=== PATIENT | male | born 1965 | race Caucasian/White ===

== ENCOUNTER 2019-08-26 08:00 | Outpatient (CLI) | payer MEDICAID ==
--- NOTE | 2019-08-26 13:51 | XRAY Report ---
PROCEDURE: Chest 2 View X-Ray INDICATIONS: SHORTNESS OF BREATH TECHNIQUE: 2 view(s) of the chest. COMPARISON: None. FINDINGS: Surgical changes and devices: None. Lungs and pleura: No pleural effusions or pneumothorax. Lungs are clear. Mediastinum: Mediastinal contours are normal. Heart size is normal. Bones and chest wall: No suspicious bony abnormalities. Soft tissues appear unremarkable. IMPRESSION: No acute pulmonary process. Reviewed by: Kritsy Beltre MD on 08/26/2019 1:50 PM PDT Approved by: Kristy Beltre MD on 08/26/2019 1:50 PM PDT Station ID: [id number]
== END 2019-08-26 23:59 | disposition home or self-care (01) ==
LOC: DI.S 08:00
PROVIDERS: ATTEND Physician Assistant Medical
DX: R06.02 Shortness of breath (principal); R07.89 Other chest pain
CPT/HCPCS: 71046

== ENCOUNTER 2019-08-26 08:00 | Outpatient (CLI) | payer MEDICAID ==
[2019-08-26 15:08] LABS: BASOPHILS # (AUTO) 0.1 10^3/uL (0.0-0.1); BASOPHILS % (AUTO) 1.1 %; EOSINOPHILS # (AUTO) 0.1 10^3/uL (0.0-0.7); EOSINOPHILS % (AUTO) 1.3 %; HGB - HEMOGLOBIN 15.4 g/dL (14.0-18.0); LYMPHOCYTES # (AUTO) 2.4 10^3/uL (1.5-3.5); LYMPHOCYTES % (AUTO) 28.6 %; MEAN CORPUSCULAR HEMOGLOBIN 32.1 pg (27.0-31.0); MEAN CORPUSCULAR VOLUME 97.3 fL (80.0-94.0); MEAN PLATELET VOLUME 11.1 fL (7.4-11.4); MONOCYTES # (AUTO) 0.4 10^3/uL (0.0-1.0); MONOCYTES % (AUTO) 5.1 %; NEUTROPHILS # (AUTO) 5.3 10^3/uL (1.5-6.6); NEUTROPHILS % (AUTO) 63.5 %; PLT - PLATELET COUNT 269 10^3/uL (130-450); RED CELL DISTRIBUTION WIDTH 13.5 % (12.0-15.0); WHITE BLOOD COUNT 8.4 x10^3/uL (4.8-10.8)
[2019-08-26 15:59] LABS: ALBUMIN 4.1 g/dL (3.2-5.5); ALBUMIN/GLOBULIN RATIO 1.5 (1.0-2.2); ALKALINE PHOSPHATASE 71 IU/L (42-121); ALT ALANINE AMINOTRANSFERASE 31 IU/L (10-60); AST ASPARTATE AMINOTRANSFERASE 23 IU/L (10-42); BILIRUBIN,TOTAL 0.3 mg/dL (0.2-1.0); BUN - BLOOD UREA NITROGEN 8 mg/dL (6-20); CALCIUM 8.8 mg/dL (8.5-10.3); CARBON DIOXIDE - CO2 22 mmol/L (21-32); CHLORIDE 108 mmol/L (101-111); CHOL/HDL RATIO 4.8 (<5.0); CHOLESTEROL 173 mg/dL; CREATININE 0.7 mg/dL (0.6-1.2); GLUCOSE 98 mg/dL (70-100); HDL CHOLESTEROL 36 mg/dL; LDL CHOLESTEROL,CALCULATED 117 mg/dL; LDL/HDL RATIO 3.3 (<3.6); SODIUM 138 mmol/L (135-145); TOTAL PROTEIN 6.9 g/dL (6.7-8.2); VLDL CHOLESTEROL 20 mg/dL
[2019-08-26 16:08] LABS: CREATINE KINASE MB 2.7 ng/mL (0.6-6.3)
[2019-08-26 16:33] LABS: CK- CREATINE KINASE 133 IU/L (22-269)
== END 2019-08-26 23:59 | disposition home or self-care (01) ==
LOC: LAB.S 08:00
PROVIDERS: ATTEND Physician Assistant Medical
DX: R06.02 Shortness of breath (principal); R07.89 Other chest pain
CPT/HCPCS: 36415; 80053; 80061; 82550; 82553; 83721; 84443; 84484; 85025; 85379

== ENCOUNTER 2021-06-13 08:00 | Outpatient (CLI) | payer MEDICAID ==
--- NOTE | 2021-06-13 14:25 | XRAY Report ---
PROCEDURE: Wrist 4 View LT INDICATIONS: PAIN IN LEFT WRIST TECHNIQUE: 4 views of the wrist were acquired. COMPARISON: None FINDINGS: Bones: No fractures. Widening of the scapholunate interval. No suspicious bony lesions. Mild periar ticular osteophyte formation at the radiocarpal, scaphotrapezial, and first metacarpal joints. Scaphoid view: Negative Soft tissues: No suspicious soft tissue calcifications. IMPRESSION: 1. Findings suggestive of scapholunate ligamentous injury. Initial further assessment with nonemergen t outpatient follow-up MRI arthrography could be performed, if clinically indicated. 2. Osteoarthritis. 3. No acute fracture. No osseous lesion. If symptoms and/or clinical suspicion for pathology continue , further assessment with repeat plain films, or advanced imaging (e.g., CT, MRI, or bone scan) is re commended for further assessment. Reviewed by: Lindy Man MD on 06/13/2021 2:23 PM PDT Approved by: Lindy Man MD on 06/13/2021 2:23 PM PDT Station ID: [id number]
== END 2021-06-13 23:59 | disposition home or self-care (01) ==
LOC: DI.S 08:00
PROVIDERS: ATTEND Physician Assistant
DX: M19.032 Primary osteoarthritis, left wrist (principal)

== ENCOUNTER 2022-03-01 03:04 | Emergency (ER) | payer MEDICAID ==
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
[2022-03-01] MEDS ORDERED: KETOROLAC 30 MG/ML VIAL IVP STA (03:34)
[2022-03-01] MEDS ORDERED: oxyCODONE 5 MG TABLET PO STA (03:34)
[2022-03-01] MEDS ORDERED: CYCLOBENZAPRINE 10 MG TABLET PO STA (03:35)
[2022-03-01] MEDS ORDERED: KETOROLAC 60 MG/2 ML VIAL IM STA (03:38)
[2022-03-01 03:57] LABS: BASOPHILS # (AUTO) 0.1 10^3/uL (0.0-0.1); BASOPHILS % (AUTO) 0.7 %; EOSINOPHILS # (AUTO) 0.1 10^3/uL (0.0-0.7); EOSINOPHILS % (AUTO) 0.7 %; HCT - HEMATOCRIT 45.6 % (42.0-52.0); HGB - HEMOGLOBIN 15.1 g/dL (14.0-18.0); LYMPHOCYTES # (AUTO) 0.3 10^3/uL (1.5-3.5); MEAN CORPUSCULAR HEMOGLOBIN 31.4 pg (27.0-31.0); MEAN CORPUSCULAR HGB CONC 33.1 g/dL (32.0-36.0); MEAN CORPUSCULAR VOLUME 94.8 fL (80.0-94.0); MONOCYTES # (AUTO) 0.8 10^3/uL (0.0-1.0); MONOCYTES % (AUTO) 8.6 %; NEUTROPHILS # (AUTO) 7.6 10^3/uL (1.5-6.6); NEUTROPHILS % (AUTO) 86.7 %; PLT - PLATELET COUNT 221 10^3/uL (130-450); RED BLOOD COUNT 4.81 10^6/uL (4.70-6.10); RED CELL DISTRIBUTION WIDTH 13.1 % (12.0-15.0); WHITE BLOOD COUNT 8.8 x10^3/uL (4.8-10.8)
[2022-03-01 04:07] LABS: ALBUMIN 4.2 g/dL (3.2-5.5); ALBUMIN/GLOBULIN RATIO 1.3 (1.0-2.2); BILIRUBIN,TOTAL 0.8 mg/dL (0.2-1.0); CALCIUM 8.7 mg/dL (8.5-10.3); CREATININE 0.7 mg/dL (0.6-1.2); POTASSIUM 4.2 mmol/L (3.5-5.0); TOTAL PROTEIN 7.4 g/dL (6.7-8.2)
[2022-03-01 04:07] LABS: BILIRUBIN,URINE NEGATIVE (NEGATIVE); GLUCOSE, URINE (UA) NEGATIVE (NEGATIVE); KETONES,URINE (UA) 15 mg/dL (NEGATIVE); LEUKOCYTE ESTERASE, URINE NEGATIVE (NEGATIVE); NITRITE,URINE NEGATIVE (NEGATIVE); OCCULT BLOOD,URINE NEGATIVE (NEGATIVE); PROTEIN,URINE NEGATIVE (NEGATIVE); UROBILINOGEN,URINE 0.2 (NORMAL) E.U./dL (NORMAL)
[2022-03-01 04:09] LABS: CLARITY,URINE CLEAR (CLEAR)
[2022-03-01 04:34] VITALS: BP 154/91
[2022-03-01] MEDS ORDERED: oxyCODONE/ACET 5/325 Prepack 4 PO STA (04:35)
[2022-03-01] MEDS ORDERED: DEXAMETHASONE 10 MG/ML VIAL PO STA (04:38)
[2022-03-01] MEDS ORDERED: CHERRY SYRUP 10 ML UDC PO ONE (04:38)
== END 2022-03-01 04:53 | disposition home or self-care (01) ==
LOC: EDUNIT# → ED 03:04
DX: M54.50 Low back pain, unspecified (principal)
CPT/HCPCS: 36415; 80053; 81003; 83690; 85025; 96372; 99283; 99284; A9270; 81001; 87086

== ENCOUNTER 2022-05-18 07:00 | Outpatient (CLI) | payer MEDICAID ==
--- NOTE | 2022-05-18 11:10 | XRAY Report ---
PROCEDURE: Hand 3 View LT INDICATIONS: CONTUSION OF LEFT HAND TECHNIQUE: 3 views of the hand(s) acquired. COMPARISON: X-ray wrist 06/13/2021 FINDINGS: Bones: No fractures or dislocations. No suspicious bony lesions. Soft tissues: No suspicious soft tissue calcifications or masses. IMPRESSION: No visualized acute fracture or dislocation. However, occult injury cannot be excluded. Recommend janina rt interval imaging follow-up in 7-10 days as clinically indicated for additional evaluation. Reviewed by: Kristy Beltre MD on 05/18/2022 11:09 AM PDT Approved by: Kristy Beltre MD on 05/18/2022 11:09 AM PDT Station ID: [id number]
== END 2022-05-18 23:59 | disposition home or self-care (01) ==
LOC: DI.S 07:00
PROVIDERS: ATTEND Physician Assistant Medical
DX: S60.222A Contusion of left hand, initial encounter (principal)

== ENCOUNTER 2022-07-18 08:00 | Outpatient (CLI) | payer MEDICAID, OTHER ==
--- NOTE | 2022-07-18 16:42 | XRAY Report ---
PROCEDURE: Finger(s) LT INDICATIONS: LEFT FINGER PAIN TECHNIQUE: AP hand, 2 views of the second finger(s) acquired. COMPARISON: None. FINDINGS: Bones: No fractures or dislocations. Radiolucency over radial aspect of second proximal phalangeal b ase is seen. No suspicious bony lesions. Soft tissues: No suspicious soft tissue calcifications or masses. IMPRESSION: No acute bony abnormality. Possible erosion involving radial aspect of second proximal phalangeal bas e suggests clinical correlation for possible inflammatory arthropathy. Reviewed by: Yonathan Rocha MD on 07/18/2022 4:41 PM PDT Approved by: Yonathan Rocha MD on 07/18/2022 4:41 PM PDT Station ID: [id number]
--- NOTE | 2022-07-18 16:43 | XRAY Report ---
PROCEDURE: Wrist 4 View LT INDICATIONS: SPRAIN OF LEFT WRIST TECHNIQUE: 5 views of the wrist were acquired. COMPARISON: None. FINDINGS: Bones: No fractures or dislocations. No suspicious bony lesions. Scaphoid view: Intraosseous cyst within mid scaphoid is seen. No evidence of avascular necrosis. Soft tissues: No suspicious soft tissue calcifications or masses. IMPRESSION: No wrist fracture or dislocation. Nonspecific intraosseous cyst within scaphoid. No evidence of avasc ular necrosis. Reviewed by: Yonathan Rocha MD on 07/18/2022 4:41 PM PDT Approved by: Yonathan Rocha MD on 07/18/2022 4:41 PM PDT Station ID: [id number]
== END 2022-07-18 23:59 | disposition home or self-care (01) ==
LOC: DI.S 08:00
PROVIDERS: ATTEND Physician Assistant
DX: S63.502A Unspecified sprain of left wrist, initial encounter (principal); M79.645 Pain in left finger(s)